=== PATIENT | male | born 1960 | race Caucasian/White ===

== ENCOUNTER 2017-05-21 10:55 | Emergency (ER) | payer BC ==
[2017-05-21 11:01] VITALS: TEMP 98.4; O2SAT 97
[2017-05-21] MEDS ORDERED: LISINOPRIL 20 MG TAB PO ONE (11:59)
--- NOTE | 2017-05-21 12:03 | EDPHY ---
H & P Stated Complaint: Feeling depressed., "prozac not working". Time Seen by Provider: 05/21/17 11:08 HPI/ROS: CHIEF COMPLAINT: depression HISTORY OF PRESENT ILLNESS: 56-year-old male presents emergency department depression. Patient states he was diagnosed with depression 1 year ago and started on Prozac. He states that he feels this has not been helping. Patient reports no motivation, no interest in things that usually interest him. He reports sleeping more than usual. Patient has the same job he has had for 22 years which he really enjoys. He bought a mountain bike 3 months ago with his best friend and stairs at wanting to ride but has no motivation to ride. Patient states he drinks 1 case of beer a week. No history of alcohol withdrawals. Patient tried to call multiple psychiatrists this morning and nobody could see him for 4 months. He denies suicidal ideation, homicidal ideation, auditory or visual hallucinations. Patient is requesting resources. REVIEW OF SYSTEMS: A comprehensive 10 point review of systems is otherwise negative aside from elements mentioned in the history of present illness. Source: Patient Exam Limitations: No limitations - Personal History Current Tetanus Diphtheria and Acellular Pertussis (TDAP): Yes - Medical/Surgical History Hx Asthma: No Hx Chronic Respiratory Disease: No Hx Diabetes: No Hx Cardiac Disease: No Hx Renal Disease: No Hx Cirrhosis: No Hx Alcoholism: No Hx HIV/AIDS: No Hx Splenectomy or Spleen Trauma: No Other PMH: Depression. - Social History Smoking Status: Never smoked - Physical Exam Exam: Physical Exam Gen: Alert and Oriented, NAD HEENT: PERRL, moist mucous membranes NECK: no meningismus CV: regular rate and regular rhythm PULM: CTAB, no wheezes NEURO: Neurologically grossly intact EXTREMITIES: normal appearing SKIN: no rash or break in skin on exposed skin PSYCH: answers questions appropriately, denies suicidal ideations, homicidal ideations, auditory and visual hallucinations. Constitutional: Initial Vital Signs Temperature (C) 36.9 C 05/21/17 10:56 Heart Rate 97 05/21/17 10:56 Respiratory Rate 18 05/21/17 10:56 Blood Pressure 195/111 H 05/21/17 10:56 O2 Sat (%) 97 05/21/17 10:56 O2 Delivery Mode Room Air Allergies/Adverse Reactions: No Known Allergies Allergy (Unverified 05/21/17 11:01) Home Medications: Medication Instructions Recorded Lisinopril 05/21/17 Prozac 40 mg 05/21/17 Medical Decision Making ED Course/Re-evaluation: Patient with elevated blood pressure in the emergency department today. He states he did not take his lisinopril last night. Patient was given his dose in the emergency department. He denies headache, chest pain, shortness of breath. He has seen by our director case management and given resources for mental health. I do not feel the patient is in danger of harming himself or others. He is comfortable with being discharged home and feels safe. He has been given strict return precautions. Departure - Departure Disposition: Home, Routine, Self-Care Clinical Impression: Depression Qualifiers: Depression Type: unspecified Qualified Code(s): F32.9 - Major depressive disorder, single episode, unspecified Condition: Good Instructions: Depression (ED) Additional Instructions: Decrease your alcohol consumption. Alcohol is a depressant, this is making you feel worse. Your blood pressure is elevated today, it is important you take your lisinopril daily as prescribed. Make an appointment with your primary care doctor for a full physical exam. Follow up with the resources provided to you today by our director case management. 1. Please follow-up with the mental health resources provided in the ED today. 2. [facility] does operate a 24/ psychiatric crisis unit located at [address] [place] [address]. The telephone number for the 24 hour crisis center is [phone]. 3. Please return to the ED if you are feeling suicidal, having thoughts of harming yourself/others or should you feel unsafe or have worsening symptoms. Referrals: KERRI ARRIAGA [Other] - As per Instructions
[2017-05-21 12:41] VITALS: BP 170/109; PULSE 83; RESP 16
== END 2017-05-21 13:09 | disposition home or self-care (01) ==
DX: F32.9 Major depressive disorder, single episode, unspecified (principal)

== ENCOUNTER 2018-07-18 15:09 | Emergency (ER) | payer BC ==
--- NOTE | 2018-07-18 17:40 | EDPHY ---
H & P Smoking Status: Never smoked Time Seen by Provider: 07/18/18 17:15 HPI/ROS: CHIEF COMPLAINT: Left calf pain HISTORY OF PRESENT ILLNESS: 58-year-old male presents to the emergency department with pain in cramping feeling in his left calf. Patient has been having ongoing pain in his low back and left hip for several months. He is being followed by orthopedic surgery. He had a recent MRI of his left hip and lumbar spine. He is scheduled follow-up appointment with his orthopedic surgeon. He went in to see his orthopedic surgeon regarding the left calf pain thinking that he needed a muscle relaxer they sent him to the emergency department to rule out DV T. Patient denies pain in his chest or difficulty breathing. Specifically denies pleuritic chest pain. He describes his left calf pain as cramping feeling very tight. He denies swelling. He does report that he recently drove back from [place] and has been in taking it more easy and lying down more because of the ongoing pain in his left hip and low back. He denies any other reported trauma. No history of previous DVT. REVIEW OF SYSTEMS: Constitutional: No fever, no chills. Eyes: No double or blurry vision. ENT: No sore throat. Respiratory: No cough, no shortness of breath. Cardiac: No chest pain. Gastrointestinal: No abdominal pain, vomiting or diarrhea. Genitourinary: No dysuria. Musculoskeletal: No neck or back pain. Skin: No rashes. Neurological: No headache. (Elia,Diamond M) Past Medical/Surgical History: Depression, hypertension (Nichellein,Diamond M) Social History: Single and lives in [place] (Nichellein,Diamond M) Physical Exam: General Appearance: Alert, no distress. 172/108 Eyes: Pupils equal and round. Extraocular motions are all intact. ENT: Mouth: Mucous membranes moist. Respiratory: No wheezing, rhonchi, or rales, lungs are clear to auscultation. Cardiovascular: Regular rate and rhythm. Gastrointestinal: Abdomen is soft and nontender, no masses, no rebound or guarding, bowel sounds normal. Neurological: Alert and oriented x 3, cranial nerves II through XII grossly intact Skin: Warm and dry, no rashes. Musculoskeletal: Nontender to palpate along the cervical, thoracic or lumbar spine. Neck is supple. Extremities: Full range of motion and no peripheral edema. Reproducible pain with palpation in the left calf. No pedal edema or swelling noted compared to the right side. No palpable bony tenderness. He has pain with dorsiflexion left foot. Psychiatric: Patient is oriented X 3, there is no agitation. (Diamond Rodrigez) Constitutional: Initial Vital Signs Temperature (C) 37.5 C 07/18/18 15:13 Heart Rate 102 H 07/18/18 15:13 Respiratory Rate 16 07/18/18 15:13 Blood Pressure 172/108 H 07/18/18 15:13 O2 Sat (%) 96 07/18/18 15:13 O2 Delivery Mode Room Air Allergies/Adverse Reactions: No Known Allergies Allergy (Unverified 07/18/18 15:12) Home Medications: Medication Instructions Recorded Lisinopril 05/21/17 Cyclobenzaprine [Flexeril] 10 mg PO HS PRN #10 tab 07/18/18 Ibuprofen 07/18/18 Medical Decision Making - Diagnostics Imaging: Discussed imaging studies w/ fire safety director Radiologist - Diagnostics Imaging Results: Imaging Impressions Extremity Venous Study 07/18/18 17:36 Impression: 1. No deep venous thrombosis in the left lower extremity. 2. Findings suggestive of elongated hematoma between fascial planes of the gastrocnemius and soleus musculature medial left calf. Findings discussed with the staff assistant with Diamond Rodrigez PA-C at 18:24 hour , 07/18/2018. ED Course/Re-evaluation: 58-year-old male presents to the emergency department with left calf pain. He was sent to rule out DVT. Ultrasound reveals no evidence of DVT however he does have evidence of hematoma from left soleus up to the proximal aspect of the left gastrocnemius muscle. Patient has scheduled follow-up appointment with his orthopedic surgeon next week. He was encouraged to return to the emergency department sooner if he developed increasing pain, numbness or tingling in his toes, increased swelling , or any other concerns. (Diamond Rodrigez) I did not see this patient while he was in the emergency department. However his care was discussed with the PA while the patient was in the department. I agree with treatment plan and management (Noe Pruett) Differential Diagnosis: Including but not limited to DVT, muscular strain, muscular spasm, hematoma, Ibanez cyst, pulmonary embolism (Rosin,Diamond M) Departure - Departure Disposition: Home, Routine, Self-Care Clinical Impression: Strain of calf muscle Qualifiers: Encounter type: initial encounter Laterality: left Qualified Code(s): S86.812A - Strain of other muscle(s) and tendon(s) at lower leg level, left leg, initial encounter Condition: Good Instructions: Muscle Cramp (ED) Additional Instructions: Ibuprofen 600 mg every 8 hr as needed for pain. Flexeril as needed for muscular spasm only to help you sleep at night. Walking and activity as tolerated is encouraged. Return to the emergency department if you developed increasing pain or swelling in her left calf or any other concerns. Follow up with her orthopedic surgeon as directed. Referrals: Jossie Lamb MD [Medical Doctor] - As per Instructions (Orthopedic surgeon on- call) Prescriptions: Cyclobenzaprine [Flexeril] 10 mg PO HS PRN #10 tab PRN Reason: P.r.n. Spasms
[2018-07-18 19:04] VITALS: BP 160/98
== END 2018-07-18 18:50 | disposition home or self-care (01) ==
DX: S86.812A Strain of other muscle(s) and tendon(s) at lower leg level, left leg, initial encounter (principal); I10 Essential (primary) hypertension; F32.9 Major depressive disorder, single episode, unspecified

== ENCOUNTER 2018-08-29 10:59 | Day surgery (SDC) | payer BC ==
[2018-08-29] MEDS ORDERED: BUPIVACAINE/EPI 0.5% 30 ML SDV ONE (11:35)
[2018-08-29] MEDS ORDERED: THROMBIN (BOVINE) 5,000 UNIT VIAL TP ONE (11:35)
[2018-08-29] MEDS ORDERED: CHLORHEXIDINE GLUC HIBICLENS 118 ML BTL TP ONE (11:35)
[2018-08-29] MEDS ORDERED: BACITRACIN 50,000 UNITS/10 ML SYR IRR ONE (11:36)
[2018-08-29] MEDS ORDERED: VANCOMYCIN 1 GM VIAL ONE (11:36)
[2018-08-29] MEDS ORDERED: LR 1,000 ML IV ONE (11:41)
[2018-08-29] MEDS ORDERED: MIDAZOLAM 2 MG/2 ML VIAL IVP ONE (13:06)
--- NOTE | 2018-08-29 13:07 | PDANEPAE ---
ANE History of Present Illness sara ANE Past Medical History - Cardiovascular History Hx Hypertension: Yes Hx Arrhythmias: No Hx Chest Pain: No Hx Coronary Artery / Peripheral Vascular Disease: No Hx CHF / Valvular Disease: No Hx Palpitations: No - Pulmonary History Hx COPD: No Hx Asthma/Reactive Airway Disease: No Hx Recent Upper Respiratory Infection: No Hx Oxygen in Use at Home: No Hx Sleep Apnea: No - Neurologic History Hx Cerebrovascular Accident: No Hx Seizures: No Hx Dementia: No - Endocrine History Hx Diabetes: No Hypothyroid: No Hyperthyroid: No Obesity: no - Liver History Hx Hepatic Disorders: No - Neurological & Psychiatric Hx Hx Neurological and Psychiatric Disorders: No - Cancer History Hx Cancer: Yes Cancer History Comment: basal cell - Congenital Disorder History Hx Congenital Disorders: No - GI History GERD: no Hx Gastrointestinal Disorders: No - Chronic Pain History Chronic Pain: No - Surgical History Prior Surgeries: right rotator cuff surgery. bilat carpal tunnel surgery ANE Review of Systems Review of Systems: - Exercise capacity Exercise capacity: >=4 METS METS (RN): 4 METS ANE Patient History - Allergies Allergies/Adverse Reactions: No Known Allergies Allergy (Unverified 07/18/18 15:12) - Home Medications Home medications: home medication list seen and reviewed Home Medications: Lisinopril 05/21/17 [Last Taken 08/29/18] Ibuprofen 07/18/18 [Last Taken 08/22/18] - NPO status NPO Status: no food or drink >8 hours NPO Since - Liquids (Date): 08/29/18 NPO Since - Liquids (Time): 05:30 NPO Since - Solids (Date): 08/28/18 NPO Since - Solids (Time): 22:00 - Anes Hx Anes Hx: no prior problems - Smoking Hx Smoking Status: Never smoked - Family Anes Hx Family Hx Anesthesia Complications: none ANE Labs/Vital Signs - Vital Signs Blood Pressure: 142/91 Heart Rate: 102 Respiratory Rate: 16 O2 Sat (%): 95 Height: 167.64 cm Weight: 86.183 kg ANE Physical Exam - Airway Mallampati Score: Class 2 Mouth exam: normal dental/mouth exam - Pulmonary Pulmonary: no respiratory distress - Cardiovascular Cardiovascular: regular rate and rhythym - ASA Status ASA Status: II ANE Anesthesia Plan Anesthesia Plan: general endotracheal anesthesia
[2018-08-29] MEDS ORDERED: ceFAZolin 2 GM/DEXTROSE 100 ML IV ONE (13:08)
[2018-08-29] MEDS ORDERED: TRANEXAMIC ACID 1,000 MG in NS 100 ML IV ONE (13:08)
[2018-08-29] MEDS ORDERED: GABAPENTIN 300 MG CAP PO ONE (13:08)
[2018-08-29] MEDS ORDERED: morphINE SR 15 MG TAB PO ONE (13:08)
[2018-08-29] MEDS ORDERED: ACETAMINOPHEN 500 MG TAB PO ONE (13:08)
--- NOTE | 2018-08-29 13:09 | PDHPUP ---
History & Physical Update H&P update statement: This history and physical update is based on an assessment of the patient which was completed after admission or registration (within 24 hours), but prior to the surgery/procedure. H&P update: no change in patient's condition since H&P completed
[2018-08-29] MEDS ORDERED: PROPOFOL/EMULSION 500 MG/50 ML BOTTLE IV ONE (13:13)
[2018-08-29] MEDS ORDERED: fentaNYL 100 MCG/2 ML INJ ONE ×2 (13:13→14:19)
[2018-08-29] MEDS ORDERED: LIDOCAINE 2% 2 ML INJ ONE ×2 (13:13→13:14)
[2018-08-29] MEDS ORDERED: ROCURONIUM 50 MG/5 ML VIAL ONE (13:14)
[2018-08-29] MEDS ORDERED: DEXAMETHASONE 4 MG/ML VIAL ONE (13:14)
[2018-08-29] MEDS ORDERED: ONDANSETRON 4 MG/2 ML VIAL ONE (13:14)
[2018-08-29] MEDS ORDERED: KETOROLAC 30 MG/1 ML SDV ONE (13:14)
[2018-08-29] MEDS ORDERED: PHENYLEPHRINE HCL 100 MCG/ML SYR ONE (14:09)
[2018-08-29] MEDS ORDERED: SUGAMMADEX SODIUM 200 MG/2 ML VIAL IVP ONE (14:44)
[2018-08-29] MEDS ORDERED: ALBUTEROL 3 ML DEYVIAL IH PRN (15:04)
[2018-08-29] MEDS ORDERED: MEPERIDINE 25 MG/0.5 ML AMP IVP PRN (15:04)
[2018-08-29] MEDS ORDERED: HYDROCODONE/APAP 5/325 TAB PO PRN (15:04)
[2018-08-29] MEDS ORDERED: fentaNYL 100 MCG/2 ML INJ IVP PRN (15:04)
[2018-08-29] MEDS ORDERED: NALOXONE HCL 0.4 MG/ML INJ IVP PRN (15:04)
[2018-08-29] MEDS ORDERED: HYDROmorphONE/DILAUDID 2 MG/ML INJ IVP PRN (15:04)
--- NOTE | 2018-08-29 15:04 | POSTANESTH ---
Post Anesthetic Evaluation Cardiovascular Status: Normal, Stable Respiratory Status: Normal, Stable Level of Consciousness/Mental Status: Can Participate in Eval Pain Control: Adequate, Prn Tx Ordered Nausea/Vomiting Control: Adequate, Prn Tx Ordered Complications Possibly Related to Anesthesia: None Noted
--- NOTE | 2018-08-29 15:18 | SUROPNOTE ---
[facility] Operative Report - Surgery Date: 08/29/18 Pre-operative Diagnosis: L4/5 Herniated nucleus pulposus Bilateral Lower extremity radiculopathy, bilateral foot drop Post-operative Diagnosis: Same Procedure: Left L4/5 microdiscectomy, L4 laminotomy and bilateral decompression Surgeon: Sushant Cruz MD Auto Electrician: Dacia Coats Anesthesia: General endotracheal anesthesia Findings: As expected Estimated Blood Loss: 5mL Drains: None Specimens: None Complications: None Condition: Transferred to PACU in stable condition. Implants: None Indications: This patient has been diagnosed with a herniated nucleus pulposus with significant lower extremity weakness. I have explained all options of treatment for the patient, and the patient has elected to proceed with operative management. I have explained all risks, benefits, and alternatives of the proposed procedure. The risks that we have discussed include , blindness, nerve damage, recurrent disc herniation, infection, dural tear, failure of surgery to alleviate pre-operative symptoms, instability, and possible need for further operation. In addition to the aforementioned procedure, I also discussed with the patient that other procedures may be indicated during the course of surgery. The patient expressed understanding of this. Pre-operative: The proposed incision site was marked in the pre-operative holding area by me. The patient was then taken to the operating room in stable condition. Following smooth induction of general anesthesia, the patient was positioned prone on a Juan M table with all down surfaces well-padded. The patient was then prepped and draped in the usual sterile fashion. Pre-operative antibiotics and tranexamic acid were administered within one hour of the incision. A surgical timeout was performed, and all parties involved in the procedure were in agreement on the correct patient, location, and procedure to be performed. Level identification: The proposed level was identified using C-arm fluoroscopy and the skin was marked for the proposed incision. A spinal needle was inserted under fluoroscopic guidance to the level of the decompression to be performed, 1cm lateral from midline. Following radiographic confirmation of proposed operative trajectory, a 25mm longitudinal incision was made through both the skin and fascia in an expected trajectory. Electrocautery was used to coagulate any bleeding vessels identified above the level of the fascia. A blunt probe was then passed through the fascial incision and docked on the lateral pars of the proposed level of dissection. Serial dilation was then performed, up to a size that would accommodate placement of a Metrx decompression tube. A sterile articulating arm was then attached to the table and affixed to the tube. Proper trajectory was again confirmed by lateral radiograph. The tube was docked on the caudal aspect of the cephalad level. Surgical microscope use: A surgical microscope was utilized throughout the decompressive portion of this case. This was deemed necessary for safe and accurate surgical decompression of affected nerve roots. Hemilaminotomy and discectomy: A high-speed oanh was used to perform a hemilaminotomy of the caudal aspect of L4. The ligamentum flavum was elevated from the dura using blunt dissectors, and resected using Kerrison rongeurs. Using a dural retractor, the dural sac was retracted medially to allow for visualization of the affected disc space. Any extruded disc fragments were excised at this time. Using a #11 blade on a long handle, a cruciate annulotomy was performed. A nerve hook was then used to probe the disc space and nucleus pulposus. A disc punch was passed into the disc space, and any loose or easily freed disc fragments were removed. Any bleeding epidural vessels were coagulated using bipolar cautery and all dural retractors were removed. A radiograph was taken to demonstrate the location of the microdiscectomy, with instruments placed to identify the operative disc space. Closure: The surgical field was then copiously irrigated with sterile saline. Vancomycin powder was then applied to the surgical field. #1 braided and absorbable interrupted sutures were used to repair the fascia. Then 2-0 interrupted sutures were used to repair the dermal layer, and a separate 3-0 monofilament suture was used to repair the subcutaneous layer in a running fashion. All sutures used were absorbable. Topical adhesive was then applied to the skin and allowed to dry. A sterile island dressing was applied over the surgical incision. A surgical count was performed before initiation of closure and following the procedure, and all were correct. I was present for the entire procedure. Surgical microscope use: A surgical microscope was utilized throughout the decompressive portion of this case. This was deemed necessary for safe and accurate surgical decompression of affected nerve roots. senior office assistant: A surgical coder was used throughout the case, and deemed necessary for safe neural retraction, hemostasis, and suction. Recovery: The patient was extubated uneventfully in the operating room. The patient was taken to the recovery room in stable condition. Sequential compression devices for VTE prophylaxis were applied to the patients lower extremities, and were ordered to be used while the patient was non-ambulatory. Chemical VTE prophylaxis was considered to be contraindicated for this patient because of the risk of bleeding near the epidural space. Sushant Cruz MD
[2018-08-29] MEDS ORDERED: HYDROCODONE/APAP 5/325 TAB ONE (15:40)
[2018-08-29 15:57] VITALS: BP 112/94
== END 2018-08-29 16:08 | disposition home or self-care (01) ==
LOC: FSGY 10:59
PROVIDERS: ATTEND Orthopaedic Surgery Orthopaedic Surgery of the Spine
PROC: 00NY0ZZ Release Lumbar Spinal Cord, Open Approach (ICD-10-PCS; principal; 2018-08-29 12:00)
DX: M51.26 Other intervertebral disc displacement, lumbar region (principal); M54.16 Radiculopathy, lumbar region
CPT/HCPCS: J0690; J1100; J1885; J2250; J2370; J2405; J2704; J3010; J3370